=== PATIENT | female | born 2000 | race African-American/Black ===

== ENCOUNTER 2019-11-06 13:15 | Emergency (ER) | payer MEDICAID, SELFPAY ==
--- NOTE | ~2019-11-06 | XR_ITS ---
XR abdomen/kub 1V DATE: 11/06/2019 14:23 INDICATION: Mid abdominal pain TECHNIQUE: Supine AP view COMPARISON: None FINDINGS: There is a prominent amount of fecal material throughout the rectum and colon suggesting co nstipation. No bowel obstruction is evident. No visceromegaly or significant abnormal calcification is evident. Levoscoliosis of the thoracolumbar spine. IMPRESSION: Prominent amount of fecal material throughout the rectum and colon suggesting constipatio n Reviewed, dictated and finalized at [facility]. Reviewed, dictated and finalized at [facility]. IMPRESSION: Prominent amount of fecal material throughout the rectum and colon suggesting constipation
[2019-11-06 13:32] VITALS: BP 108/70; PULSE 73; RESP 18; TEMP 37.1; O2SAT 100
--- NOTE | 2019-11-06 13:59 | ED.GENADULT ---
HPI - General Adult General Chief complaint: Abdominal Pain Stated complaint: abd pain Time Seen by Provider: 11/06/19 13:59 Source: patient and RN notes reviewed Mode of arrival: ambulatory Limitations: no limitations History of Present Illness HPI narrative: 18-year-old -[place] female presents with complaints of mid-lower abdomen pain and emesis after eating a new food item 1 hour. No treatment. No significant pelvic pain. No vaginal discharge. No concerns for a STD. No fever or chills. No nausea or diarrhea. No flank pain. No exacerbating factors. Current being treated for a UTI with Macrobid (taking medication without difficulty). Denies hematuria or vaginal bleeding. No blood in stool or constipation. Last BM was 11/05/19, normal. No cough or dyspnea. Denies chest pain, back pain, headache, and dizziness. LMP 3 weeks ago. The patient reports she have not been diagnosed with COVID-19. The patient reports she is not waiting for the results of a COVID-19 lab test. The patient reports she do not have fever, chills, weakness, or fatigue. The patient reports she do not have a new or worsening cough or shortness of breath. Denies chest pain. The patient reports she do not have any rhinorrhea, congestion, sore throat. Tolerating po intake well. Denies recent traveling. Denies concerns for COVID-19 or exposures been home with limited outdoor exposure except for essential household needs and return home. At this time, patient is not suspected of having COVID-19. Some parts of this dictation were generated by voice recognition software and may contain typographical and/or grammatical inaccuracies. Related Data Home Medications Medication Instructions Recorded Confirmed calcium carbonate-vitamin D3 tablet 11/06/19 [Oysco 500/D] multivitamin tablet 11/06/19 nitrofurantoin monohyd/m-cryst 11/06/19 Allergies Allergy/AdvReac Type Severity Reaction Status Date / Time No Known Allergies Allergy Verified 11/06/19 13:19 Review of Systems Review of Systems: Narrative: CONSTITUTIONAL: Denies fever, chills, sweats. EYES: Denies visual changes, redness, discharge. ENT: Denies rhinorrhea, congestion, sore throat, otalgia. CARDIOVASCULAR: Denies chest pain, palpitations, edema. RESPIRATORY: Denies dyspnea, wheezing, cough. GASTROINTESTINAL: Mid-lower abdominal pain, vomiting. Denies nausea, diarrhea. GENITOURINARY: Denies dysuria, hematuria, abnormal discharge. SKIN: Denies rash or itching. MUSCULOSKELETAL: Denies acute back pain, joint pain, or myalgia. NEUROLOGIC: Denies numbness or focal weakness. PSYCHIATRIC: Denies anxiety or depression. All other systems reviewed are negative, except as documented in HPI and below. [facility] Past Medical History Medical History (Updated 11/07/19 @ 00:00 by Beatriz Dacarlos) Heart murmur Hemorrhoids Levoscoliosis Miscarriage UTI (urinary tract infection) Surgical History Surgical History (Updated 11/06/19 @ 15:37 by RUTHANN Braswell) No significant past surgical history Family History Family History (Updated 11/06/19 @ 15:37 by RUTHANN Braswell) Father Unknown family medical history Mother Alive and well Social History Social History (Updated 11/06/19 @ 15:38 by RUTHANN Braswell) Smoking status: Never smoker Tobacco type: cigarettes Second hand tobacco smoke exposure: Yes Alcohol intake: current Substance use: current Substance use type: marijuana Living arrangements: with family Occupation/Education: unemployed Gender identity (if verbalized by the patient): Female Sexual Orientation (if Verbalized by the Patient): Straight or Heterosexual Comments At time of signature, agree with nurse past medical, surgical, social, and family history. There is no relevant family history pertinent to the presenting complaint. Exam Narrative: Exam Narrative: GENERAL: This is a well-nourished, well-developed patient,
--- NOTE | 2019-11-06 14:07 | PC.NURSE ---
was seen by supervisor plating and point assembly at 1400, in [place] to obtain ua spec. at this time.
== END 2019-11-06 14:42 | disposition home or self-care (01) ==
PROVIDERS: Emergency Provider Nurse Practitioner Family
DX: R10.33 Periumbilical pain (principal); K59.00 Constipation, unspecified
CPT/HCPCS: 74018; 81003; 99213; G0463